=== PATIENT | female | born 1990 | race Caucasian/White ===

== ENCOUNTER 2022-10-31 10:56 | Inpatient (IN) | payer BC ==
[2022-10-31] MEDS ORDERED: Oxytocin/Lactated Ringers 10 UNIT/1,000 ML BAG IV SCH (17:04)
[2022-10-31] MEDS ORDERED: Lactated Ringers 1,000 ML IV SCH (17:04)
[2022-10-31] MEDS ORDERED: Nalbuphine 10 MG/0.5 ML Syringe IVPUSH PRN (17:04)
[2022-10-31] MEDS ORDERED: Misoprostol 100 MCG Tab VAG PRN (17:04)
[2022-10-31] MEDS ORDERED: Acetaminophen 325 MG Tab PO PRN (17:04)
[2022-10-31] MEDS ORDERED: Sodium Chloride 0.9% 10 ML Syringe FLUSH PRN (17:04)
[2022-10-31] MEDS ORDERED: Misoprostol 25 MCG (1/4 of 100 MCG) Tab ONE (17:19)
[2022-10-31] MEDS: Misoprostol 25 MCG (1/4 of 100 MCG) Tab VAG PRN ×2 (17:23→21:24)
[2022-10-31] MEDS ORDERED: fentaNYL 100 MCG/2 ML SDV EPIDUR PRN (18:52)
[2022-10-31] MEDS ORDERED: ePHEDrine 50 MG/ML SDV IVPUSH PRN (18:52)
[2022-10-31] MEDS ORDERED: diphenhydrAMINE 50 MG/ML SDV IVPUSH PRN (18:52)
[2022-10-31] MEDS ORDERED: Bupivacaine/fentaNYL/NS 100 ML Bag EPIDUR PRN (18:52)
[2022-10-31] MEDS ORDERED: Sodium Chloride 0.9% 10 ML Syringe FLUSH SCH (21:00)
[2022-11-01] MEDS ORDERED: Ropivacaine 0.2% PF 2 MG/ML 20 ML SDV ONE
[2022-11-01] MEDS ORDERED: Oxytocin/Lactated Ringers 10 UNIT/1,000 ML BAG IV SCH ×2 (01:00→05:55)
[2022-11-01] MEDS: Lactated Ringers 1,000 ML IV SCH ×2 (01:21→03:02)
[2022-11-01] MEDS ORDERED: Witch Hazel Medicated Pads 40/Jar TOP PRN (05:55)
[2022-11-01] MEDS ORDERED: Magnesium Hydroxide 400 MG/5 ML Susp 30 ML Cup PO PRN (05:55)
[2022-11-01] MEDS ORDERED: Acetaminophen 325 MG Tab PO PRN (05:55)
[2022-11-01] MEDS ORDERED: Hydrocortisone Acetate 25 MG Supp RECTAL PRN (05:55)
[2022-11-01] MEDS ORDERED: Benzocaine/Menthol 20%-0.5% Spray 78 GM Cannister TOP PRN (05:55)
[2022-11-01] MEDS: Ferrous Sulfate 324 MG Tab.EC PO SCH (06:06)
[2022-11-01] MEDS: Levothyroxine 25 MCG Tab PO SCH (06:06)
[2022-11-01] MEDS: Docusate Sodium 100 MG Cap PO SCH (10:53)
[2022-11-01] MEDS: Prenatal Multivitamin with Calcium/Folic Acid/Iron Tab PO SCH (10:53)
[2022-11-02] MEDS: Ibuprofen 600 MG Tab PO PRN ×3 (01:16→20:20)
[2022-11-02] MEDS: Docusate Sodium 100 MG Cap PO SCH ×3 (01:16→20:20)
[2022-11-02] MEDS: Ferrous Sulfate 324 MG Tab.EC PO SCH ×3 (03:35→17:43)
[2022-11-02] MEDS: Levothyroxine 25 MCG Tab PO SCH (06:30)
[2022-11-02] MEDS: Prenatal Multivitamin with Calcium/Folic Acid/Iron Tab PO SCH (10:33)
[2022-11-03] MEDS: Prenatal Multivitamin with Calcium/Folic Acid/Iron Tab PO SCH (09:23)
[2022-11-03] MEDS: Ferrous Sulfate 324 MG Tab.EC PO SCH (09:23)
[2022-11-03] MEDS: Levothyroxine 25 MCG Tab PO SCH (09:24)
[2022-11-03] MEDS: Docusate Sodium 100 MG Cap PO SCH (09:24)
[2022-11-03] MEDS: Ibuprofen 600 MG Tab PO PRN (09:27)
== END 2022-11-03 09:49 | disposition home or self-care (01) | DRG 542 ==
LOC: JD.OBCHECK 10:56 → JD.OB 11:01 → JD.OBCHECK 16:52 → JD.OB 16:53 → OBSVTOIN 11-01 03:56 → JD.OB 11-01 03:57
PROVIDERS: ADMIT Obstetrics & Gynecology; ATTEND Obstetrics & Gynecology
PROC: 10E0XZZ Delivery of Products of Conception, External Approach (ICD-10-PCS; principal; 2022-11-01)
PROC: 0DQR0ZZ Repair Anal Sphincter, Open Approach (ICD-10-PCS; 2022-11-01)
PROC: 3E0R3BZ Introduction of Anesthetic Agent into Spinal Canal, Percutaneous Approach (ICD-10-PCS; 2022-11-01)
PROC: 00HU33Z Insertion of Infusion Device into Spinal Canal, Percutaneous Approach (ICD-10-PCS; 2022-11-01)
PROC: 3E0P7VZ Introduction of Hormone into Female Reproductive, Via Natural or Artificial Opening (ICD-10-PCS; 2022-11-01)
DX: O14.04 Mild to moderate pre-eclampsia, complicating childbirth (principal); O69.81X0 Labor and delivery complicated by cord around neck, without compression, not applicable or unspecified; O70.20 Third degree perineal laceration during delivery, unspecified; O90.81 Anemia of the puerperium; D62 Acute posthemorrhagic anemia; O99.344 Other mental disorders complicating childbirth; F41.9 Anxiety disorder, unspecified; F32.A Depression, unspecified; O99.284 Endocrine, nutritional and metabolic diseases complicating childbirth; E03.9 Hypothyroidism, unspecified; O72.1 Other immediate postpartum hemorrhage; Z3A.37 37 weeks gestation of pregnancy; Z37.0 Single live birth; Z88.2 Allergy status to sulfonamides; Z79.890 Hormone replacement therapy; Z87.891 Personal history of nicotine dependence
CPT/HCPCS: 01967; 36415; 51701; 59025; 59409; 80053; 82570; 83615; 84156; 85025; 85027; 86592; A9270-GY; C1726; J2590; J2795; J3490; J7120

== ENCOUNTER 2024-06-12 01:48 | Inpatient (IN) | payer BC ==
[2024-06-12] MEDS ORDERED: Sodium Chloride 0.9% 10 ML Syringe FLUSH PRN (02:13)
[2024-06-12] MEDS ORDERED: Nalbuphine 10 MG/1 ML Vial IVPUSH PRN (02:13)
[2024-06-12] MEDS ORDERED: Ondansetron 4 MG/2 ML SDV IVPUSH PRN (02:13)
[2024-06-12 02:35] LABS: BASOPHILS PERCENT AUTO 0.2 % (0.0-1.0); EOSINOPHILS ABSOLUTE AUTO 0.1 K/mm3 (0.0-0.4); EOSINOPHILS PERCENT AUTO 0.7 % (0.0-6.0); HEMATOCRIT 37.4 % (37.0-47.0); HEMOGLOBIN 12.7 gm/dl (12.0-16.0); IMMATURE GRAN ABSOLUTE AUTO 0.06 K/mm3 (0.00-0.05); IMMATURE GRAN PERCENT AUTO 0.6 % (0.0-0.4); LYMPHOCYTES ABSOLUTE AUTO 2.2 K/mm3 (1.0-4.8); LYMPHOCYTES PERCENT AUTO 20.9 % (24.0-44.0); MEAN CORPUSCULAR HEMOGLOBIN 31.8 pg (28.0-32.0); MEAN CORPUSCULAR VOLUME 93.7 fl (83.0-99.0); MEAN PLATELET VOLUME 11.5 fl (9.4-12.3); MONOCYTES ABSOLUTE AUTO 0.7 K/mm3 (0.0-0.8); MONOCYTES PERCENT AUTO 6.8 % (0.0-8.0); NEUTROPHILS ABSOLUTE AUTO 7.5 K/mm3 (1.8-7.7); NEUTROPHILS PERCENT AUTO 70.8 % (41.0-71.0); PLATELET COUNT,PLT 205 K/mm3 (150-400); RED BLOOD CELL COUNT 3.99 M/mm3 (4.10-5.30); WHITE BLOOD CELL COUNT,WBC 10.54 K/mm3 (3.9-11.3)
[2024-06-12] MEDS: Oxytocin/0.9 % Sodium Chloride 30 UNIT/500 ML BAG IV SCH (02:56)
[2024-06-12] MEDS: Lidocaine 1% 50 ML MDV INJECT PRN (03:15)
[2024-06-12] MEDS ORDERED: Sennosides 8.6 MG Tab PO PRN (03:36)
[2024-06-12] MEDS ORDERED: Acetaminophen 325 MG Tab PO PRN (03:36)
[2024-06-12] MEDS ORDERED: Magnesium Hydroxide 400 MG/5 ML Susp 30 ML Cup PO PRN (03:36)
[2024-06-12] MEDS ORDERED: Docusate Sodium 100 MG Cap PO PRN (03:36)
[2024-06-12] MEDS: Benzocaine/Menthol 20%-0.5% Spray 78 GM Cannister TOP PRN (04:40)
[2024-06-12] MEDS: Witch Hazel Medicated Pads 40/Jar TOP PRN (04:40)
[2024-06-12] MEDS: Ibuprofen 800 MG Tab PO SCH ×2 (06:05→18:15)
[2024-06-12] MEDS: Lactated Ringers 1,000 ML IV SCH (06:11)
[2024-06-12] MEDS: Tranexamic Acid 1,000 MG/10 ML Vial IV ONE (06:18)
[2024-06-12 10:12] LABS: HEMATOCRIT 32.8 % (37.0-47.0); HEMOGLOBIN 11.3 gm/dl (12.0-16.0); MEAN CORPUSCULAR HEMOGLOBIN 32.5 pg (28.0-32.0); MEAN CORPUSCULAR HGB CONC 34.5 g/dl (32.0-36.0); MEAN CORPUSCULAR VOLUME 94.3 fl (83.0-99.0); MEAN PLATELET VOLUME 11.8 fl (9.4-12.3); PLATELET COUNT,PLT 183 K/mm3 (150-400); RED BLOOD CELL COUNT 3.48 M/mm3 (4.10-5.30); WHITE BLOOD CELL COUNT,WBC 15.28 K/mm3 (3.9-11.3)
[2024-06-12] MEDS: Sodium Chloride 0.9% 10 ML Syringe FLUSH SCH (12:22)
[2024-06-12] MEDS: Citalopram 20 MG Tab PO SCH (12:51)
[2024-06-13] MEDS: Levothyroxine 25 MCG Tab PO SCH (06:25)
== END 2024-06-13 12:43 | disposition home or self-care (01) | DRG 560 ==
LOC: JD.OBCHECK 01:48 → JD.OB 01:51 → JD.OBCHECK 02:12 → JD.OB 02:13 → OBSVTOIN 02:53 → JD.OB 02:54
PROVIDERS: ADMIT Obstetrics & Gynecology; ATTEND Obstetrics & Gynecology
PROC: 10E0XZZ Delivery of Products of Conception, External Approach (ICD-10-PCS; principal; 2024-06-12)
PROC: 0KQM0ZZ Repair Perineum Muscle, Open Approach (ICD-10-PCS; 2024-06-12)
PROC: 0UQGXZZ Repair Vagina, External Approach (ICD-10-PCS; 2024-06-12)
DX: O99.344 Other mental disorders complicating childbirth (principal); F41.9 Anxiety disorder, unspecified; O99.283 Endocrine, nutritional and metabolic diseases complicating pregnancy, third trimester; E03.9 Hypothyroidism, unspecified; O77.0 Labor and delivery complicated by meconium in amniotic fluid; Z37.0 Single live birth; Z3A.39 39 weeks gestation of pregnancy; O70.1 Second degree perineal laceration during delivery; O71.7 Obstetric hematoma of pelvis
CPT/HCPCS: 36415; 51701; 59025; 59409; 85025; 85027; 86592; 86850; 86900; 86901; A9270-GY; C1758; J2001; J3490; J7120; J7999